=== PATIENT | female | born 2000 | race Caucasian/White ===

== ENCOUNTER 2020-10-13 19:33 | Emergency (ER) | payer OTHER, BC ==
[2020-10-13] MEDS ORDERED: MELOXICAM 7.5 MG TABLET PO STA (20:09)
--- NOTE | 2020-10-13 20:11 | ED Physician Documentation ---
PD HPI LOWER EXT INJURY - Stated complaint Stated Complaint: RT FOOT INJURY - Chief complaint Chief Complaint: Ext Problem - History obtained from History obtained from: Patient - History of Present Illness PD HPI LOW EXT INJURY LOCATION: Right Where injury occurred: Work Timing - details: Gradual onset Pain level max: 8 Pain level now: 8 Improved by: Rest, Ice, Immobilization Worsened by: Moving, Palpating Associated symptoms: Swelling. No: Weakness, Numbness, Tingling - Additional information Additional information: 20-year-old female who presents to the emergency department with a right ankle injury. She states that this occurred at work. She states she was jumping on a pizza sauce box when her right ankle rolled. Initially had mild pain, has worsened over the past several hours. Has not taken anything for the pain. Has been icing at home. Denies any possibility of Review of Systems Constitutional: denies: Fever GI: denies: Vomiting : denies: Now [facility] PAST MEDICAL HISTORY - Past Medical History Past Medical History: Yes Cardiovascular: None Respiratory: None Neuro: None Endocrine/Autoimmune: None GI: None AGRONOMY SPECIALIST: None : None HEENT: None Psych: None Musculoskeletal: None Derm: None - Past Surgical History Past Surgical History: No - Present Medications Home Medications: Ambulatory Orders Medication Instructions Recorded Confirmed Meloxicam [Mobic] 7.5 mg PO BID PRN #20 tablet 10/13/20 - Allergies Allergies/Adverse Reactions: Allergies Allergy/AdvReac Type Severity Reaction Status Date / Time No Known Drug Allergies Allergy Verified 10/13/20 19:41 - Social History Does the pt smoke?: No Smoking Status: Current every day smoker Does the pt drink ETOH?: Yes Does the pt have substance abuse?: No Substance Use and Type: Marijuana - Immunizations Immunizations are current?: Yes - POLST Patient has POLST: No PD ED PE NORMAL - Vitals Vital signs reviewed: Yes - General General: Alert and oriented X 3, No acute distress - HEENT HEENT: Moist mucous membranes - Derm Derm: Warm and dry - Extremities Extremities: Other (Normal examination of the right foot. The right ankle there is tenderness over the lateral malleolus with mild swelling. No tenderness over the remainder of the tibia or fibula. Neurovascular intact) - Neuro Neuro: Alert and oriented X 3 - Psych Psych: Normal mood, Normal affect Results - Vitals Vitals: Vital Signs - 24 hr 10/13/20 10/13/20 10/13/20 19:36 20:41 21:55 Temperature 36.6 C 36.7 C Heart Rate 114 H 89 85 Respiratory 16 16 16 Rate Blood Pressure 137/87 H 112/72 109/77 O2 Saturation 98 100 100 Oxygen O2 Source Room air - Rads (name of study) Right ankle x-ray Radiology: Prelim report reviewed, EMP read contemporaneously, See rad report PD MEDICAL DECISION MAKING - ED course Complexity details: reviewed results, re-evaluated patient, considered differential, d/w patient ED course: No acute findings on x-ray. Placed in an Aircast for comfort. Feels better a fter Mobic. Given crutches as well. Patient with an ankle sprain. Patient counseled regarding signs and symptoms for which I believe and urgent re- evaluation would be necessary. Patient with good understanding of and agreement to plan and is comfortable going home at this time This document was made in part using voice recognition software. While efforts are made to proofread this document, sound alike and grammatical errors may occur. Departure - Departure Disposition: 01 Home, Self Care Clinical Impression: Right ankle sprain Qualifiers: Encounter type: initial encounter Involved ligament of ankle: unspecified ligament Qualified Code(s): S93.401A - Sprain of unspecified ligament of right ankle, initial encounter Condition: Good Instructions: ED Sprain Ankle W X Ray Follow-Up: your,doctor in 1 week [Other] Prescriptions: Meloxicam [Mobic] 7.5 mg PO BID PRN #20 tablet PRN Reason: Pain Comments: Your x-ray does not show any acute abnormalities today. You may bear weight as tolerated. Follow-up with your doctor in 1 week for repeat evaluation. Return if you worsen. Discharge Date/Time: 10/13/20 21:45
--- NOTE | 2020-10-13 21:27 | XRAY Report ---
PROCEDURE: Ankle 3 View RT INDICATIONS: rolled right ankle TECHNIQUE: 3 views of the ankle were acquired. COMPARISON: None. FINDINGS: Bones: No fractures or dislocations. Ankle mortise is normally aligned. No suspicious bony lesions . Soft tissues: No tibiotalar joint effusion. Achilles tendon appears normal. IMPRESSION: 1. No fracture or dislocation. Reviewed by: Wellington Haley MD on 10/13/2020 9:26 PM PDT Approved by: Wellington Haley MD on 10/13/2020 9:26 PM PDT Station ID: [id number]
[2020-10-13 21:56] VITALS: BP 109/77
== END 2020-10-13 21:45 | disposition home or self-care (01) ==
LOC: ED 20:18
DX: S93.401A Sprain of unspecified ligament of right ankle, initial encounter (principal); X50.1XXA Overexertion from prolonged static or awkward postures, initial encounter; Y93.9 Activity, unspecified; Y99.0 Civilian activity done for income or pay; Z72.0 Tobacco use
CPT/HCPCS: 1040M; 73610; 99283; 99284; A9270

== ENCOUNTER 2022-05-23 08:52 | Day surgery (SDC) | payer BC ==
[~2022-05-23 08:52] MED LIST: ACETAMINOPHEN 500 MG TABLET PO ONE; BUPIVACAINE 0.5% PF 30 ML VIAL ONE; CEFAZOLIN 2G/50ML 0.9% NS 2 GM/50 ML BAG IV ONE; CELECOXIB 100 MG CAPSULE PO ONE; LIDOCAINE MPF 2%-EPI 1:200000 20 ML VIAL ONE
[2022-05-23] MEDS ORDERED: LACTATED RINGERS 1,000 ML IV ONE ×2 (08:55→11:53)
[2022-05-23 09:09] LABS: HCG UR QUAL NEGATIVE
--- NOTE | 2022-05-23 10:07 | ANESTHESIA ---
Pre-Anesthesia VS, & Labs - Diagnosis right breast lump - Procedure right breast excisional biopsy Vital Signs: Temp Pulse Resp BP Pulse Ox O2 Flow Rate 36.8 C 86 16 121/77 98 0 05/23/22 09:00 05/23/22 09:00 05/23/22 09:00 05/23/22 09:00 05/23/22 09:00 05/23/22 09:00 Height: 5 ft 6 in Weight (kg): 66 kg Body Mass Index: 23.5 BMI Classification: Normal - NPO >8 hours - Is Patient ?: No Home Medications and Allergies Home Medications: Ambulatory Orders No Known Home Medications 05/13/22 No Known Home Medications 05/13/22 Allergies/Adverse Reactions: Allergies Allergy/AdvReac Type Severity Reaction Status Date / Time No Known Drug Allergies Allergy Verified 10/13/20 19:41 Anes History & Medical History - Anesthetic History Family history of Anesthesia Complications: Denies Family history of Malignant Hyperthermia: Denies - Medical History Cardiovascular: reports: None Pulmonary: reports: None Gastrointestinal: reports: None Urinary: reports: None Neuro: reports: None Musculoskeletal: reports: None Endocrine/Autoimmune: reports: None Blood Disorders: reports: None Skin: reports: None Smoking Status: Current every day smoker (vapes daily) Psychosocial: reports: No issues indicated History of Cancer?: No - Surgical History Other Past Surgical History: wisdom teeth Exam General: Alert, Oriented x3, Cooperative, No acute distress Dental: WNL (perm. retainers upper and lower) Mouth Openin Fingerbreadth Neck Mobility: Normal Mallampati classification: I Thyromental Distance: 4-6 cm Mental/Cognitive Status: Alert/Oriented X3, Normal for patient Plan Anesthesia Type: General Consent for Procedure(s) Verified and Reviewed: Yes Code Status: Attempt Resuscitation ASA classification: 2-Mild systemic disease Is this case an emergency?: No
[2022-05-23] MEDS ORDERED: MIDAZOLAM 2 MG/2 ML VIAL ONE (10:13)
[2022-05-23] MEDS ORDERED: PROPOFOL 200 MG/20 ML VIAL IVP ONE (10:13)
[2022-05-23] MEDS ORDERED: fentaNYL 100 MCG/2 ML VIAL ONE (10:13)
[2022-05-23] MEDS ORDERED: SCOPOLAMINE PATCH TOP ONE (10:41)
[2022-05-23] MEDS ORDERED: DEXAMETHASONE 4 MG/ML VIAL ONE (10:54)
[2022-05-23] MEDS ORDERED: ONDANSETRON 4 MG/2 ML VIAL ONE (10:54)
[2022-05-23] MEDS ORDERED: SCOPOLAMINE PATCH TOP SCH (11:00)
[2022-05-23] MEDS ORDERED: BUPIVACAINE 0.5% PF 30 ML VIAL SUBQ ONE ×2 (11:10)
[2022-05-23] MEDS ORDERED: LIDOCAINE MPF 2%-EPI 1:200000 20 ML VIAL SUBQ ONE ×2 (11:10)
[2022-05-23] MEDS ORDERED: KETOROLAC 30 MG/ML VIAL ONE (11:40)
[2022-05-23] MEDS ORDERED: oxyCODONE 5 MG TABLET PO PRN (11:45)
[2022-05-23] MEDS ORDERED: HYDROmorphone 0.5 MG/0.5 ML SYRINGE IVP PRN ×2 (11:45→12:06)
[2022-05-23] MEDS ORDERED: ONDANSETRON 4 MG/2 ML VIAL IVP PRN ×2 (11:45→12:06)
--- NOTE | 2022-05-23 11:53 | OPERATIVE REPORT ---
Operative Report - General Procedure Date: 05/23/22 Planned Procedure: right breast excisional biopsy Pre-Op Diagnosis: PASH, discordant studies Procedure Performed: right breast excisional biopsy Post Op Diagnosis: PASH, discordant studies - Procedure Note Primary Surgeon: Shalini Lawler MD Anesthesia Provider: Isis Tellez CRNA Anesthesia Technique: General LMA, Local Pathology: 1. right breast mass, h/o PASH, discordant studies, short superior, long lateral, double anterior Estimated Blood Loss (mL): 10 Indications: This is a very pleasant 21-year-old female with a history of a right breast mass. She underwent mammogram and ultrasound and an area of focal abnormality was identified. This was biopsied and noted to be PASH. It was felt that this pathologic finding is discordant from her imaging. Given that the patient is very young, and long-term follow-up will require more than 30 years of surveillance, the patient elected to proceed with excisional biopsy. We discussed the risks, benefits, and alternatives of the procedure including bleeding, infection, damage to surrounding structures, and the need for further surgeries or procedures. We also discussed the possibility that positive margins could be obtained and more tissue may need to be taken in an additional procedure. The patient voiced understanding, her questions were answered, and she wished to proceed with surgery. A consent was signed by the patient in clinic. Findings: 1.Thickened tissue in the area of palpable mass. Specimen contains clip on specimen mammogram. Complications: none - Other Other Information/Narrative: The patient was taken to the operating room and placed in the supine position. Preop antibiotics were given. ERAS medications were given. The patient was prepped and draped in the usual sterile fashion. A preop surgical timeout was performed. Attention was turned to the patient's right breast. An incision was made which overlying the palpable mass. Skin flaps were raised superiorly and inferiorly to the incision. At this point, serrated scissors were used to perform an excisional biopsy of the mass. The specimen was removed and oriented with suture (short superior, long lateral, double anterior) on the back table. The specimen was sent to mammography and the biopsy clip was confirmed to be within the specimen. The specimen was then sent to pathology for permanent. The edges of the cavity were inspected and there were no palpable abnormalities. Excellent hemostasis was confirmed. The deep dermal tissues were closed with 3-0 Vicryl in an interrupted fashion. The skin was closed with 4-0 Monocryl in a running subcuticular fashion and skin glue was placed over the incision. The patient tolerated the procedure well. Th ere were no complications.
[2022-05-23] MEDS ORDERED: METOCLOPRAMIDE 10 MG/2 ML VIAL IVP PRN (12:06)
[2022-05-23] MEDS ORDERED: ePHEDrine 50 MG/ML VIAL IVP PRN (12:06)
[2022-05-23] MEDS ORDERED: fentaNYL 100 MCG/2 ML VIAL IVP PRN (12:06)
[2022-05-23] MEDS ORDERED: MORPHINE 2 MG/ML CARPUJECT IVP PRN (12:06)
[2022-05-23] MEDS ORDERED: ATROPINE ABBOJECT 1 MG/10 ML SYRINGE IVP PRN (12:06)
[2022-05-23] MEDS ORDERED: NALOXONE 0.4 MG/ML VIAL IVP PRN (12:06)
[2022-05-23 12:59] VITALS: BP 121/77
[2022-05-23] MEDS ORDERED: LACTATED RINGERS 1,000 ML IV SCH (13:00)
--- NOTE | 2022-05-23 19:02 | ANESTHESIA POST OP EVALUATION ---
Anesthesia Post Eval - Post Anesthesia Eval Vitals: Last Vital Signs Temp 36.8 C 05/23/22 12:45 Pulse 86 05/23/22 12:45 Resp 16 05/23/22 12:45 BP 121/77 05/23/22 12:45 Pulse Ox 98 05/23/22 12:45 O2 Flow Rate 0 05/23/22 09:00 CV Function Including HR & BP: Stable Pain Control: Satisfactory Nausea & Vomiting: Negative Mental Status: Baseline Respiratory Status: Airway Patent Hydration Status: Satisfactory Anesthesia Complications: None
--- NOTE | 2022-05-24 12:56 | Mammography Report ---
SPECIMEN: 05/23/2022 CLINICAL: Right breast specimen. No prior exams were available for correlation. Right breast lumpectomy specimen contains the twirl biopsy clip. IMPRESSION: SPECIMEN Right breast lumpectomy specimen contains the twirl biopsy clip. This exam was interpreted at Station ID: [id number]. David Gunter M.D. slc/:05/23/2022 16:58:18 BI-RADS CATEGORY: () - Unspecified - other recall n/a LATERALITY: (B)
== END 2022-05-23 08:53 | disposition home or self-care (01) ==
LOC: SDS 08:52
PROVIDERS: ATTEND Surgery
PROC: 0HBT0ZX Excision of Right Breast, Open Approach, Diagnostic (ICD-10-PCS; principal; 2022-05-23 10:30)
DX: N63.11 Unspecified lump in the right breast, upper outer quadrant (principal); N64.89 Other specified disorders of breast; F17.290 Nicotine dependence, other tobacco product, uncomplicated; Z32.02 Encounter for pregnancy test, result negative; Z97.5 Presence of (intrauterine) contraceptive device
CPT/HCPCS: 19125; 76098; 81025; A9270; J0690; J3490; J7120